=== PATIENT | female | born 1930 | race Caucasian/White ===

== ENCOUNTER 2016-09-15 13:51 | Emergency (ER) | payer MEDICARE ==
[2016-09-15 14:54] LABS: BASOPHIL# 0.1 X 10^3uL (0.0-0.1); BASOPHILS 0.7 % (0.0-2.0); EOSINOPHILS 1.5 % (0.0-6.0); EOSINOPHILS# 0.1 X 10^3uL (0.0-0.4); HEMATOCRIT 43.4 % (36.0-48.0); HEMOGLOBIN 14.7 g/dL (12.0-16.0); LYMPHOCYTES 28.7 % (20.0-40.0); LYMPHOCYTES# 2.8 X 10^3uL (0.8-3.8); MEAN CELL VOLUME 97.2 fL (84.0-102.0); MEAN CORPUS. HGB CONCENTRATION 33.9 g/dL (32.0-36.0); MEAN CORPUSCULAR HEMOGLOBIN 32.9 pg (29.0-35.0); MEAN PLATELET VOLUME 8.4 fL (7.4-10.4); MONOCYTES 8.3 % (2.0-10.0); MONOCYTES# 0.8 X 10^3uL (0.2-1.0); NEUTROPHILS 60.8 % (54.0-75.0); NEUTROPHILS# 6.1 X 10^3uL (2.6-6.7); PLATELET COUNT 198 X 10^3uL (130-440); RED BLOOD COUNT 4.47 X 10^6uL (4.20-6.10); RED CELL DISTRIBUTION WIDTH 13.4 % (11.5-14.5); WHITE BLOOD COUNT 9.9 X 10^3uL (3.9-10.7)
[2016-09-15 15:07] LABS: A/G RATIO 1.3; ALBUMIN 4.5 g/dL (3.5-5.0); ALKALINE PHOSPHATASE 77 U/L (38-126); ALT 33 U/L (9-52); AST 28 U/L (14-36); BILIRUBIN, TOTAL 0.5 mg/dL (0.2-1.3); BLOOD UREA NITROGEN 20 mg/dL (7-17); CALCIUM 10.6 mg/dL (8.4-10.2); CHLORIDE 102 mmol/L (98-107); CREATININE 0.9 mg/dL (0.5-1.0); GLUCOSE 151 mg/dL (70-100); MAGNESIUM 1.5 mg/dL (1.6-2.3); POTASSIUM 4.5 mmol/L (3.5-5.1); TOTAL PROTEIN 8.1 g/dL (6.3-8.2)
--- NOTE | 2016-09-15 15:11 | CT REPORT ---
Radiology report Head CT without contrast September 15, 2016 CLINICAL HISTORY: altered mental status. PROCEDURE: Routine noncontrast axial imaging of the brain was performed. Dose reduction technique was performed was performed. FINDINGS: There are no prior studies. There is mild diffuse atrophy. The ventricular size is normal. Mild patchy chronic white matter changes are evident. There is no subdural, epidural, midline shift o r mass effect. No findings of acute infarction. The skull is intact. Visualized paranasal sinuses and mastoid air cells are clear. IMPRESSION: No acute findings within the brain. Mild diffuse atrophy and mild patchy chronic white matter changes. Report called to Dr. Bella. Final Electronic Signature: This report was electronically signed by Herb Cesar MD on 09/15/2016 3 :09 PM. nevaeh /
[2016-09-15 15:19] LABS: SODIUM 135 mmol/L (137-145)
--- NOTE | 2016-09-15 16:04 | ER PHYSICIAN DOCUMENTATION ---
Physician Documentation [facility] Name:Iliana Tripp Age:86 yrs Sex:Female :[id number] Arrival Date:09/15/2016 Time:13:51 Bed3 Private MD: Felix Alvarenga Disposition: 09/15 15:38 Critical Care: not applicable. tl1 16:09 Chart complete. tl1 Disposition: 09/15/16 15:39 Discharged to Home/Self Care. Impression: Transient Ischemic Attack (TIA). - Condition is Good. - Discharge Instructions: TIA. - Medical Reconciliation form form. - Follow up: Private Physician; When: 10 - 14 days; Reason: Recheck today's complaints, Continuance of care. - Problem is new. - Symptoms are resolved. HPI: 13:55 This 86 yrs old Female presents to ER via Private Vehicle with complaints of tl1 Altered Mental Status. 13:55 About 25 min [employer], while opening a new bank account. with her daughter, she became tl1 "confused", and was unable to answer simple questions that she normally would have no problem with. Her speech was not garbled. She did seem to have more difficulty hearing than she normally does. Denied N/W/T. No visual problems or gait difficulty. She says she had a TIA about 30 years ago, wth no similar symptoms until today. Denies h/o A fib or palpitations.. Historical: - Allergies: Eggs; Pollen; - Home Meds: 1. Tekturna oral 2. Mobic oral 3. Toprol XL Oral 4. Crestor oral 5. Potassium Chloride Oral 6. Metformin Oral 7. amlodipine oral 8. besylate 9. Clonidine Oral 10. Aspirin Oral 11. multivitamin with minerals oral 12. Calcium Lactate Oral 13. Vitamin D Oral 14. Valacyclovir Oral - PMHx: DIABETES - NIDDM; HYPERTENSION; - Tetanus: < 10 years. - Ebola Screening: : Patient denies exposure to infectious person. Patient denies travel to an Ebola-affected area in the 21 days before illness onset. . - Immunization history: Pneumococcal vaccine status is unknown. - Social history: Smoking status: Patient states was never smoker of tobacco. Patient uses alcohol but reports only rare drinking. ROS: 15:03 Constitutional: Positive for fatigue, malaise. tl1 15:03 Neuro: Positive for altered mental status. 15:03 All other systems are negative. Exam: 15:03 Head/Face: Normocephalic, atraumatic. Eyes: Pupils equal round and reactive to tl1 light, extra-ocular motions intact. Lids and lashes normal. Conjunctiva and sclera are non-icteric and not injected. Cornea within normal limits. Periorbital areas with no swelling, redness, or edema. ENT: Nares patent. No nasal discharge, no septal abnormalities noted. Tympanic membranes are normal and external auditory canals are clear. Oropharynx with no redness, swelling, or masses, exudates, or evidence of obstruction, uvula midline. Mucous membranes moist. Neck: Trachea midline, no thyromegaly or masses palpated, and no cervical lymphadenopathy. Supple, full range of motion without nuchal rigidity, or vertebral point tenderness. No Meningismus. Respiratory: Lungs have equal breath sounds bilaterally, clear to auscultation and percussion. No rales, rhonchi or wheezes noted. No increased work of breathing, no retractions or nasal flaring. Abdomen/GI: Soft, non-tender, with normal bowel sounds. No distension or tympany. No guarding or rebound. No evidence of tenderness throughout. Skin: Warm, dry with normal turgor. Normal color with no rashes, no lesions, and no evidence of cellulitis. 15:03 Constitutional: The patient appears in no acute distress, alert, awake, comfortable, non-diaphoretic, well developed, well hydrated, well groomed, well nourished. 15:03 Musculoskeletal/extremity: trace bilateral pretibial edema at the mid crews.. 15:03 Skin: Exam negative for acute changes. 15:03 Neuro: Orientation: is normal, Mentation: appropriate for stated age, Memory: is normal, Cranial nerves: grossly normal, Motor: moves all fours, strength is 5/5 in the right hand, left hand, right foot and left foot, Sensation: light touch sense is normal, Gait: is steady, appropriate for age, Deep tendon reflexes are 0 (absent) in the right Achilles and left Achilles, 1 (trace) + in the right patellar and left patellar, 2+ (normal) in the right brachioradialis and left brachioradialis. 15:03 Cardiovascular: Rate: normal, Rhythm: regular, Heart sounds: murmur, systolic, tl1 crescendo - decrescendo, grade 3 over 6, heard in the aortic area, with radiation throughout the precordium.. Vital Signs: 13:58 BP 176 / 71; Pulse 68; Resp 20; Temp 98.5; Pulse Ox 92% on R/A; Pain 0/10; st 15:43 BP 164 / 66; Pulse 83; Pulse Ox 90% on R/A; st MDM: 14:50 Patient medically screened. tl1 15:45 EKG attached rh 15:45 Differential Diagnosis: CVA, electrolyte abnormality, hypoglycemia, intracranial bleed, tl1 sepsis, TIA, UTI, volume depletion. Data reviewed: vital signs, nurses notes, lab test result(s), EKG, radiologic studies, and as a result, I will discharge patient. Test interpretation: by ED physician or midlevel provider: ECG. Counseling: I had a detailed discussion with the patient and/or guardian regarding: the historical points, exam findings, and any diagnostic results supporting the discharge/admit diagnosis, lab results, radiology results, the need for outpatient follow up, to return to the emergency department if symptoms worsen or persist or if there are any questions or concerns that arise at home. Response to treatment: There is no appreciated change of the patient's symptoms at this time, and as a result, I will discharge patient. ED course: She was completely asymptomatic at the time of d/c, and her daughter thought she had completely returned to her pre-event neurologic status.. 15:45 ECG:. tl1 15:50 Special discussion: I let her know that she has minor electrolyte abnormalities, namely tl1 mild hypomagnesemia, and mild hypercalcemia that are of no immediate consequence, but which do need f/u in about 2 weeks when she returns home. I recommended a high magnesium diet for now. She was provided with copies of her labs, CT, and EKG. She has an appointment already scheduled for early September for routine health care maintenance, and I encouraged her to keep it.. 09/15 14:56 Order name: CBC AUTO DIF, MDIF/RMOR IF IND; Complete Time: 15:58 EDMS Interpretation: Normal: WHITE BLOOD COUNT 9.9; HEMOGLOBIN 14.7; HEMATOCRIT 43.4; PLATELET COUNT 198. 09/15 15:20 Order name: COMPREHENSIVE METABOLIC PANEL; Complete Time: 16:16 EDMS 09/15 16:16 Interpretation: SODIUM 135; POTASSIUM 4.5; CHLORIDE 102; CARBON DIOXIDE 26; GLUCOSE tl1 151; BLOOD UREA NITROGEN 20; CALCIUM 10.6; ALBUMIN 4.5. 09/15 15:20 Order name: MAGNESIUM; Complete Time: 16:16 EDMS 02 15:12 Order name: CAT SCAN; HEAD W/O CON [id number]; Complete Time: 15:58 EDMS 09/15 14:30 Order name: EKG - 12 Lead; Complete Time: 15:16 tl1 EC:14 Rate is 75 beats/min. Rhythm is regular, Normal Sinus Rhythm with LVH with secondary tl1 repolarization abnormalities. QRS [place] is Normal. NH interval is normal at 207 msec. QRS interval is normal at 96 msec. QT interval is normal at 410 msec. No Q waves. Clinical impression: NSR, with LVH and secondary repolarization abnormalities. Interpreted by me. Reviewed by me. Dispensed Medications: No medications were administered Point of Care Testing: Blood Glucose: 14:01 Blood Glucose: 146 mg/dL; rh Urine Dip: 13:58 pH: 5.0; ; Specific [place]: 1.030; Ketones: Small; Glucose: Negative; Protein: rh Positive (++); Leukocytes: Negative; Nitrite: Negative ; Blood: Negative; Bilirubin: Negative ; Urobilinogen: Normal Ranges: Critical Glucose Levels:Adult <50 mg/dl or >400 mg/dl <40 mg/dl or >180 mg/dl Signatures: Jennifer Montana RN RN st Leigh, Tom, MD MD tl1 Inessa Sanchez
--- NOTE | 2016-09-15 16:04 | ER NURSING DOCUMENTATION ---
Nurse's Notes [facility] Name:Iliana Tripp Age:86 yrs Sex:Female :1930 Arrival Date:09/15/2016 Time:13:51 Bed3 Private MD: Diagnosis:Transient Ischemic Attack (TIA) Presentation: 09/15 13:52 Presenting complaint: Patient states: pt states she was at the bank and could not st understand what was going on she could hear but it did not make any snece and she could not remember things. Daughter states she was acting confused but had no trouble walking. pt states she feels better now. Daughter states she still has some slow thought presess. Transition of care: patient was not received from another setting of care. 13:52 Method Of Arrival: Private Vehicle st 13:58 Acuity: SIS 3 rh Triage Assessment: 14:18 General: Appears in no apparent distress, Behavior is cooperative. Pain: Denies pain. st EENT: Neuro: Level of Consciousness is awake, alert, Oriented to person, place, time, event, [employer] Social Worker are equal bilaterally Moves all extremities. Gait is steady, at base line with cane. Speech is normal, Reports few min of confusion. Cardiovascular: Capillary refill < 3 seconds Heart tones present Pulses are all present. Respiratory: No deficits noted. GI: No deficits noted. Historical: - Allergies: Eggs; Pollen; - Home Meds: 1. Tekturna oral 2. Mobic oral 3. Toprol XL Oral 4. Crestor oral 5. Potassium Chloride Oral 6. Metformin Oral 7. amlodipine oral 8. besylate 9. Clonidine Oral 10. Aspirin Oral 11. multivitamin with minerals oral 12. Calcium Lactate Oral 13. Vitamin D Oral 14. Valacyclovir Oral - PMHx: DIABETES - NIDDM; HYPERTENSION; - Tetanus: < 10 years. - Ebola Screening: : Patient denies exposure to infectious person. Patient denies travel to an Ebola-affected area in the 21 days before illness onset. . - Immunization history: Pneumococcal vaccine status is unknown. - Social history: Smoking status: Patient states was never smoker of tobacco. Patient uses alcohol but reports only rare drinking. Screenin:20 Infectious Disease Risk None. Abuse screen: Denies threats or abuse. Denies injuries st from another. Nutritional screening: No deficits noted. Assessment: 15:44 See Triage Assessment done by same RN. General: pt resting quietly symptoms seem to st have fully resolved. . Vital Signs: 13:58 BP 176 / 71; Pulse 68; Resp 20; Temp 98.5; Pulse Ox 92% on R/A; Pain 0/10; st 15:43 BP 164 / 66; Pulse 83; Pulse Ox 90% on R/A; st ED Course: 13:52 Patient arrived in ED. ds 13:58 Triage completed. rh 14:05 Jennifer Montana RN is Primary Nurse. st 14:20 Valuables Remains with patient Patient has correct armband on for positive st identification. Placed in gown. Bed in low position. Call light in reach. Pulse Ox - RN Monitoring Only NIBP On - RN Monitoring Only. Warm blanket given. 14:29 Felix Bella MD is Attending Physician. tl1 14:[address] ms 14:47 Inserted peripheral IV: 20 gauge in right antecubital area and blood collected. Missed st attempts: 20 gauge X 1. 15:04 Patient moved back from CT. pm1 15:14 EKG done. (by ED staff). Reviewed by Felix Bella MD. rh 15:45 EKG attached rh Administered Medications: No medications were administered Point of Care Testing: Blood Glucose: 14:01 Blood Glucose: 146 mg/dL; rh Urine Dip: 13:58 pH: 5.0; ; Specific [place]: 1.030; Ketones: Small; Glucose: Negative; Protein: rh Positive (++); Leukocytes: Negative; Nitrite: Negative ; Blood: Negative; Bilirubin: Negative ; Urobilinogen: Normal Ranges: Outcome: 15:39 Discharge ordered by tl1 16:03 Discharged to home ambulatory. st 16:03 Condition: improved 16:03 Discharge instructions given to patient, Instructed on discharge instructions, follow up and referral plans. 16:03 [address] ED[address] 02 09:50 Discharge F/U Call: Unable to reach: no answer st 09/17 09:15 Discharge F/U Call: Unable to reach: no answer st Signatures: Jennifer Montana RN RN st Srot, Jael, Reg Reg Pat Jane ms Naseem Powers pm1 Felix Bella MD MD tl1 Inessa Sanchez
== END 2016-09-15 16:03 | disposition home or self-care (01) ==
LOC: ER 13:51
DX: G45.9 Transient cerebral ischemic attack, unspecified (principal); R53.83 Other fatigue; R53.81 Other malaise; R41.82 Altered mental status, unspecified; E83.42 Hypomagnesemia; E83.52 Hypercalcemia; E11.9 Type 2 diabetes mellitus without complications; I10 Essential (primary) hypertension; Z79.899 Other long term (current) drug therapy; Z79.82 Long term (current) use of aspirin
CPT/HCPCS: 70450; 80053; 83735; 85025; 93005; 99284